=== PATIENT | male | born 1960 | race Hispanic/Latino ===

== ENCOUNTER → 2025-01-08 | Day surgery (SDC) | payer BC ==
[2025-01-05 10:41] LABS: BASOPHILS % 0.6 % (0.0-1.0); EOSINOPHILS % 7.0 % (0.0-6.0); LYMPHOCYTES % 30.5 % (18.0-39.1); MONOCYTES % 12.2 % (4.4-11.3); NEUTROPHILS % 49.5 % (38.7-80.0); RED CELL DISTRIBUTION WIDTH 13.6 % (11.7-14.4)
[2025-01-05 11:07] LABS: EST GLOMERULAR FILTRATION RATE 100.0 ML/MIN (>=60)
[~2025-01-08] MED LIST: ATORVASTATIN CA20 MG PO; LACTATED RINGER'S 1,000 ML ONE; LEVOTHYROXINE112 MCG PO; LIDOCAINE HCL 2% LOCAL INJ 5 ML SDV VIAL INJ ONE; METFORMIN HCL500 MG PO; OZEMPIC0.25 MG/02; PROPOFOL IV EMULSION 10 MG/ML 20 ML VIAL ONE; TESTOSTERONE SHOT; WEGOVY0.25 MG/0.; ZOLPIDEM TARTRAT5 MG PO
[2025-01-08 09:55] VITALS: TEMP 97.5
[2025-01-08 10:20] VITALS: BP 117/80; PULSE 80; RESP 16; O2SAT 99
== END | disposition home or self-care (01) ==
LOC: OR 06:24
PROVIDERS: ATTEND Surgery
DX: K21.00 Gastro-esophageal reflux disease with esophagitis, without bleeding (principal); K44.9 Diaphragmatic hernia without obstruction or gangrene; G47.33 Obstructive sleep apnea (adult) (pediatric); E11.9 Type 2 diabetes mellitus without complications; I10 Essential (primary) hypertension; E78.5 Hyperlipidemia, unspecified; E03.9 Hypothyroidism, unspecified; Z01.810 Encounter for preprocedural cardiovascular examination; Z01.812 Encounter for preprocedural laboratory examination; Z01.818 Encounter for other preprocedural examination; Z79.84 Long term (current) use of oral hypoglycemic drugs; Z79.85 Long-term (current) use of injectable non-insulin antidiabetic drugs; Z79.899 Other long term (current) drug therapy; Z96.82 Presence of neurostimulator
CPT/HCPCS: 36415 ×2; 43235; 71046; 80053; 82948; 85025; 93005; J2003; J2704; J7121; 43239